=== PATIENT | male | born 1965 | race Caucasian/White ===

== ENCOUNTER 2016-12-22 19:23 | Emergency (ER) | payer OTHER ==
[2016-12-22 19:45] VITALS: BP 147/79; PULSE 87; TEMP 98.1; BMI 25.0
--- NOTE | 2016-12-22 20:12 | PDOC ---
History of Present Illness - General History Source: Patient Exam Limitations: No Limitations - History of Present Illness Initial Comments: 12/22/16 20:22 The patient is a 51 year old male, with no significant past medical history who presents to the emergency department with penile pain and erection for the past 3 weeks. Patient states the pain is localized to the head of the penis with no penile discharge or dysuria. Patient has been cleaning the area with vinegar solution with no relief. Patient reports one sexual partner, with protection for the past year. Patient has not seen a urologist for the past year and presents to the ED for further evaluation. He denies chest pain, headache or dizziness. He denies fever, chills, abdominal pain, nausea, vomit, diarrhea or constipation. He denies dysuria, frequency, urgency or hematuria. Patient denied sick contacts or recent travel. Past surgical history: None Social history: Current everyday smoker PCP: None <Nicolle Beal - Last Filed: 12/22/16 20:23> - General History Source: Patient <Daniel Joe - Last Filed: 12/23/16 19:34> - General Chief Complaint: Pain Stated Complaint: Penile PAIN Time Seen by Provider: 12/22/16 20:09 Past History <Nicolle Beal - Last Filed: 12/22/16 20:23> - Suicide/Smoking/Psychosocial Hx Smoking History: Current every day smoker Have you smoked in the past 12 months: Yes Number of Cigarettes Smoked Daily: 4 Information on smoking cessation initiated: No Hx Alcohol Use: No Drug/Substance Use Hx: No Substance Use Type: None <Daniel Joe - Last Filed: 12/23/16 19:34> - Past Medical History Home Medications: Ambulatory Orders Clotrimazole [Clotrimazole AF] 28 gm TP QID #1 cream..g. 12/22/16 Review of Systems - Review of Systems Able to Perform ROS?: Yes Comments:: 12/22/16 20:22 CONSTITUTIONAL: Absent: fever, chills, diaphoresis, generalized weakness, malaise, loss of appetite HEENT: Absent: rhinorrhea, nasal congestion, throat pain, throat swelling, difficulty swallowing, mouth swelling, ear pain, eye pain, visual Changes CARDIOVASCULAR: Absent: chest pain, syncope, palpitations, irregular heart rate, lightheadedness , peripheral edema RESPIRATORY: Absent: cough, shortness of breath, dyspnea with exertion, orthopnea, wheezing, stridor, hemoptysis GASTROINTESTINAL: Absent: abdominal pain, abdominal distension, nausea, vomiting, diarrhea, constipation, melena, hematochezia GENITOURINARY: +Penile pain. Absent: dysuria, frequency, urgency, hesitancy, hematuria, flank pain, genital pain MUSCULOSKELETAL: Absent: myalgia, arthralgia, joint swelling SKIN: Absent: rash, itching, pallor HEMATOLOGIC/IMMUNOLOGIC: Absent: easy bleeding, easy bruising, lymphadenopathy, frequent infections ENDOCRINE: Absent: unexplained weight gain, unexplained weight loss, heat intolerance, cold intolerance NEUROLOGIC: Absent: headache, focal weakness or paresthesias, dizziness, unsteady gait, seizure, mental status changes, bladder or bowel incontinence PSYCHIATRIC: Absent: anxiety, depression, suicidal or homicidal ideation, hallucinations. <Nicolle Beal - Last Filed: 12/22/16 20:23> *Physical Exam - Vital Signs Last Vital Signs Temp Pulse Resp BP Pulse Ox 98.1 F 87 16 147/79 100 12/22/16 19:24 12/22/16 19:24 12/22/16 19:24 12/22/16 19:24 12/22/16 19:24 - Physical Exam Comments: 12/22/16 20:22 GENERAL: Well developed, well nourished. Awake and alert. In no acute distress. HEENT: Normocephalic, atraumatic. PERRLA, EOMI. No conjunctival pallor. Sclerae are non -icteric. Moist mucous membranes. Oropharynx is clear. NECK: Supple. Full ROM. No JVD. Carotid pulses 2+ and symmetric, without bruits. No thyromegaly. No lymphadenopathy. CARDIOVASCULAR: Regular rate and rhythm. No murmurs, rubs, or gallops. Distal pulses are 2+ and symmetric. PULMONARY: No evidence of respiratory distress. Lungs clear to auscultation bilaterally. No wheezing, rales or rhonchi. ABDOMINAL: Soft. Non-tender. Non-distended. No rebound or guarding. No organomegaly. Normoactive bowel sounds. : +Uncircumsized penis. Diffuse satellite lesions on glans and rim of foreskin.MUSCULOSKELETAL Normal range of motion at all joints. No bony deformities or tenderness. No CVA tenderness. EXTREMITIES: No cyanosis. No clubbing. No edema. No calf tenderness. SKIN: Warm and dry. Normal capillary refill. No rashes. No jaundice. NEUROLOGICAL: Alert, awake, appropriate. Cranial nerves 2-12 intact. No deficits to light touch and temperature in face, upper extremities and lower extremities. No motor deficits in the in face, upper extremities and lower extremities. Normoreflexic in the upper and lower extremities. Normal speech. Toes are downgoing bilaterally. Gait is normal without ataxia. PSYCHIATRIC: Cooperative. Good eye contact. Appropriate mood and affect. <Nicolle Beal - Last Filed: 12/22/16 20:23> - Vital Signs Last Vital Signs Temp Pulse Resp BP Pulse Ox 98.1 F 87 16 147/79 100 12/22/16 19:24 12/22/16 19:24 12/22/16 19:24 12/22/16 19:24 12/22/16 19:24 <Daniel Joe - Last Filed: 12/23/16 19:34> Medical Decision Making - Medical Decision Making 12/23/16 19:33 Dr. Joe: The scribe's documentation has been prepared under my direction and personally reviewed by me in its entirery. I confirm that the note above accurately reflects all work, treatment, procedures, and medical decision making performed by me. <Daniel Joe - Last Filed: 12/23/16 19:34> *DC/Admit/Observation/Transfer - Attestations Scribe Attestion: 12/22/16 20:23 Documentation prepared by Nicolle Beal, acting as medical instructor for Daniel Joe DO. <Nicolle Beal - Last Filed: 12/22/16 20:23> - Discharge Dispostion Admit: No <Daniel Joe - Last Filed: 12/23/16 19:34> Diagnosis at time of Disposition: Balanitis - Discharge Dispostion Disposition: HOME Condition at time of disposition: Stable - Prescriptions Prescriptions: Clotrimazole [Clotrimazole AF] 28 gm TP QID #1 cream..g. - Referrals Referrals: Bon Hensley MD [Staff Physician] - Sylvain Carpio MD [Staff Physician] - - Patient Instructions Printed Discharge Instructions: DI for Balanitis Additional Instructions: Keep area clean. Follow up with urology if no improvement Print Language: [place]
[2016-12-22 20:38] LABS: URINE APPEARANCE CLEAR; URINE BILIRUBIN NEGATIVE (NEGATIVE); URINE BLOOD NEGATIVE (NEGATIVE); URINE COLOR STRAW; URINE GLUCOSE (UA) NEGATIVE (NEGATIVE); URINE KETONE NEGATIVE (NEGATIVE); URINE NITRITE NEGATIVE (NEGATIVE); URINE PROTEIN NEGATIVE (NEGATIVE); URINE UROBILINOGEN NEGATIVE mg/dL (0.2-1.0)
[2016-12-22 22:37] LABS: URINE LEUK ESTERASE Negative (NEGATIVE)
== END 2016-12-22 20:50 | disposition home or self-care (01) ==
LOC: JER 19:23
DX: N48.1 Balanitis (principal); F17.210 Nicotine dependence, cigarettes, uncomplicated
CPT/HCPCS: 81003; 87086; 99281-25